=== PATIENT | male | born 1940 | race Caucasian/White ===

== ENCOUNTER 2016-10-07 08:09 | Emergency (ER) | payer OTHER ==
[~2016-10-07] VITALS: Ht 160 cm; Wt 115.3 kg
[~2016-10-07 08:09] MED LIST: ASPIRIN325 MG PO; AZOR 5/40 MG1 TABLET PO; DELTASONE20 M1 PO; FINASTERIDE5 MG PO; LOPRESSOR100 M1 PO; LOVAZA1 GM PO; MOTION RELIEF25 MG PO; NIASPAN,SLO-NI750 MG PO; PRILOSEC20 MG PO; TAMSULOSIN HCL0.4 MG PO; WELCHOL625 MG PO; ZETIA10 MG PO
[2016-10-07 08:55] LABS: EOSINOPHIL (%) 3.7 % (0-5); EOSINOPHIL COUNT 0.2 K/uL (0-0.3); HEMATOCRIT 38.6 % (38.0-50.0); IMMATURE GRANULOCYTE (%) 0.2 % (0.0-0.7); INSTRUMENT ABS NEUTROPHIL CT 2.4 K/uL; LYMPHOCYTE COUNT 1.5 K/uL (1.0-2.8); MCH 33.3 PG (29.0-34.0); MCV 95.1 FL (86-99); MONOCYTE (%) 9.7 % (3-12); MONOCYTE COUNT 0.4 K/uL (0-0.8); NEUTROPHIL (%) 53.5 % (45-76); NEUTROPHIL COUNT 2.4 K/uL (1.8-6.4); PLATELET COUNT 111 K/uL (156-360); RBC DIS.WIDTH-CV 12.7 % (11.8-14.6); RBC DIS.WIDTH-SD 43.7 % (39-53); RED BLOOD COUNT 4.06 M/uL (4.00-5.50); WHITE BLOOD COUNT 4.6 K/uL (4.1-10.2)
[2016-10-07 09:02] LABS: CHLORIDE 106 mEq/L (99-109); POTASSIUM 3.9 mEq/L (3.7-5.4); SODIUM 136 mEq/L (136-147)
[2016-10-07 09:03] LABS: GLUCOSE 133 mg/dL (70-99)
[2016-10-07 09:05] LABS: ANION GAP 4 MEQ/L (2-14)
[2016-10-07 09:07] LABS: GFR ESTIMATE (CALCULATED) > 59 mL/min/
[2016-10-07 09:08] LABS: UREA NITROGEN (BUN) 24 mg/dL (9-23)
[2016-10-07 09:19] LABS: TROP-I INTERPRETATION NEGATIVE; TROPONIN-I < 0.01 ng/mL (0.0-0.30)
[2016-10-07] MEDS ORDERED: ANTIVERT25 MG PO (13:03)
[2016-10-07 13:12] VITALS: BP 146/80
== END 2016-10-07 13:15 | disposition home or self-care (01) ==
LOC: EME 08:09
PROVIDERS: Emergency Medicine
DX: R42 Dizziness and giddiness (principal); E78.5 Hyperlipidemia, unspecified; I10 Essential (primary) hypertension; I25.2 Old myocardial infarction; Z98.61 Coronary angioplasty status; Z79.82 Long term (current) use of aspirin
CPT/HCPCS: 70450; 70551; 71010; 80048; 84484; 85025; 93005; 99281; 99284

== ENCOUNTER 2017-11-27 22:41 | Emergency (ER) | payer OTHER ==
[~2017-11-27] VITALS: Ht 177.8 cm; Wt 115.7 kg
[~2017-11-27 22:41] MED LIST changes: +ANTIVERT25 MG PO
[2017-11-28 01:56] LABS: BASOPHIL (%) 0.3 % (0-1); EOSINOPHIL (%) 1.7 % (0-5); EOSINOPHIL COUNT 0.1 K/uL (0-0.3); HEMATOCRIT 40.5 % (38.0-50.0); HEMOGLOBIN 14.7 G/DL (12.5-16.6); IMMATURE GRANULOCYTE (%) 0.1 % (0.0-0.7); LYMPHOCYTE (%) 19.6 % (15-42); LYMPHOCYTE COUNT 1.5 K/uL (1.0-2.8); MCH 34.3 PG (29.0-34.0); MCHC 36.3 G/DL (30.0-36.0); MCV 94.6 FL (86-99); MONOCYTE (%) 7.6 % (3-12); MONOCYTE COUNT 0.6 K/uL (0-0.8); NEUTROPHIL (%) 70.7 % (45-76); NEUTROPHIL COUNT 5.5 K/uL (1.8-6.4); PLATELET COUNT 143 K/uL (156-360); RBC DIS.WIDTH-CV 12.2 % (11.8-14.6); RBC DIS.WIDTH-SD 42.3 % (39-53); RED BLOOD COUNT 4.28 M/uL (4.00-5.50); WHITE BLOOD COUNT 7.8 K/uL (4.1-10.2)
[2017-11-28 02:03] LABS: ALBUMIN 4.1 g/dL (3.2-4.8); CHLORIDE 105 mEq/L (99-109); SODIUM 139 mEq/L (136-147)
[2017-11-28 02:06] LABS: GLUCOSE 102 mg/dL (70-99); TOTAL PROTEIN 7.5 g/dL (6.4-8.3)
[2017-11-28 02:08] LABS: TOTAL BILIRUBIN 0.8 mg/dL (0.0-1.0)
[2017-11-28 02:09] LABS: ALKALINE PHOSPHATASE 53 IU/L (3-129); CREATININE 0.9 mg/dL (0.6-1.3); GFR ESTIMATE (CALCULATED) > 59 mL/min/ (58.99-99999)
[2017-11-28 02:10] LABS: UREA NITROGEN (BUN) 18 mg/dL (9-23)
[2017-11-28 02:11] LABS: AST (GOT) 28 IU/L (2-34)
[2017-11-28 02:12] LABS: ALT (GPT) 21 IU/L (3-49); URIC ACID 6.3 mg/dL (3.1-9.2)
[2017-11-28 02:17] LABS: ERTH.SED.RATE 23 MM/HR (0-20)
[2017-11-28 02:33] LABS: C-REACTIVE PROTEIN 13.5 MG/L (0-10)
[2017-11-28] MEDS ORDERED: KEFLEX500 MG PO ×2 (02:56→11:51)
[2017-11-28 03:08] VITALS: BP 142/70
== END 2017-11-28 03:09 | disposition home or self-care (01) ==
LOC: EME 22:41
PROVIDERS: Physician Assistant
DX: L03.114 Cellulitis of left upper limb (principal); M70.22 Olecranon bursitis, left elbow; E78.5 Hyperlipidemia, unspecified; I10 Essential (primary) hypertension; I25.2 Old myocardial infarction; Z86.718 Personal history of other venous thrombosis and embolism; I25.10 Atherosclerotic heart disease of native coronary artery without angina pectoris; Z95.5 Presence of coronary angioplasty implant and graft; Z79.82 Long term (current) use of aspirin; Z88.0 Allergy status to penicillin; Z87.891 Personal history of nicotine dependence
CPT/HCPCS: 73080; 80053; 83605; 84550; 85025; 85651; 86140; 87040; 99281; 99284

== ENCOUNTER 2017-11-28 09:43 | Emergency (ER) | payer OTHER ==
[~2017-11-28] VITALS: Ht 177.8 cm; Wt 115.3 kg
[~2017-11-28 09:43] MED LIST changes: +KEFLEX500 MG PO
[2017-11-28] MEDS ORDERED: KEFLEX500 MG PO (11:51)
[2017-11-28 12:13] VITALS: BP 136/88
== END 2017-11-28 12:14 | disposition home or self-care (01) ==
LOC: EME 09:43
DX: L03.114 Cellulitis of left upper limb (principal); I10 Essential (primary) hypertension; E78.5 Hyperlipidemia, unspecified; I25.10 Atherosclerotic heart disease of native coronary artery without angina pectoris; I25.2 Old myocardial infarction; Z95.5 Presence of coronary angioplasty implant and graft; Z87.891 Personal history of nicotine dependence; Z86.718 Personal history of other venous thrombosis and embolism; Z79.82 Long term (current) use of aspirin; Z88.0 Allergy status to penicillin; Z88.1 Allergy status to other antibiotic agents; Z88.8 Allergy status to other drugs, medicaments and biological substances
CPT/HCPCS: 99281; 99284